=== PATIENT | male | born 1940 | race Caucasian/White ===

== ENCOUNTER 2018-08-15 06:29 | Day surgery (SDC) | payer MEDICARE, BC ==
[~2018-08-15] VITALS: Ht 175.3 cm; Wt 75.2 kg
[~2018-08-15 06:29] MED LIST: AMLO10TA8 PO; ASPI-496 PO; CHOL100015 PO; CHOL500050 PO; CIPR500T87 PO; CYAN100072 PO; CYAN1TAB29 PO; DAPA10TA PO; ENAL10TA PO; ENAL20TA PO; FENO160T PO; FLUC200T PO; FURO20TA3 PO; GLIM4TAB PO; GLIM4TAB2 PO; HYDR-3237 PO; HYDR-3240 PO; HYDR-3342 PO; INSU100V13 SQ; INSULIN GLARGINE SQ; LEVO150T5 PO; LEVO175T5 PO; LIPA1CAP PO; METO50TA82 PO; NIAC500C3 PO; OMEG1CAP2 PO; ONDA4TAB7 PO; POTA20TA14 PO; PREG50CA PO; PT TO BRING LIST; SERT50TA28 PO; SITA1TAB5 PO
[2018-08-15] MEDS ORDERED: LACTATED RINGERS 1,000 ML IV SCH (07:09)
[2018-08-15 07:13] VITALS: BP 149/69
[2018-08-15] MEDS ORDERED: VITAMIN D PO (07:42)
[2018-08-15] MEDS ORDERED: PIOG15TA22 PO (07:42)
[2018-08-15] MEDS ORDERED: DAPA1TAB3 PO (07:42)
[2018-08-15 07:54] LABS: ALANINE AMINOTRANSFERASE 21 U/L (12-78); ALBUMIN 3.5 g/dL (3.4-5.0); ANION GAP 10 mmol/L (5-15); CALCIUM 9.3 mg/dL (8.5-10.1); CHLORIDE 107 mmol/L (98-107)
[2018-08-15 07:56] LABS: ALKALINE PHOSPHATASE 121 U/L (45-117); BILIRUBIN,TOTAL 0.4 mg/dL (0.2-1.0); TOTAL PROTEIN 7.5 g/dL (6.4-8.2)
[2018-08-15] MEDS ORDERED: ALBUTEROL/IPRATROPIUM 2.5MG/0.5MG, 3 ML NPPB PRN (08:30)
[2018-08-15] MEDS ORDERED: KETOROLAC 30 MG/1 ML IV PRN (08:30)
[2018-08-15] MEDS ORDERED: METOPROLOL 1 MG/ML, 5ML IV PRN (08:30)
[2018-08-15] MEDS ORDERED: FENTANYL PF 100 MCG/2ML IV PRN (08:30)
[2018-08-15] MEDS ORDERED: ONDANSETRON 2MG/ML, 2ML IV PRN (08:30)
[2018-08-15] MEDS ORDERED: ACETAMINOPHEN 325 MG TABLET PO PRN (08:30)
[2018-08-15] MEDS ORDERED: MIDAZOLAM 1 MG/ML, 2ML IV PRN (08:30)
[2018-08-15] MEDS ORDERED: PROPOFOL 10 MG/ML, 20ML ONE (08:34)
== END 2018-08-15 11:05 | disposition home or self-care (01) ==
LOC: OUT 06:29
PROVIDERS: ATTEND Internal Medicine Geriatric Medicine
DX: Z09 Encounter for follow-up examination after completed treatment for conditions other than malignant neoplasm (principal); K63.5 Polyp of colon; I10 Essential (primary) hypertension; E11.9 Type 2 diabetes mellitus without complications; G47.33 Obstructive sleep apnea (adult) (pediatric); E03.9 Hypothyroidism, unspecified; I25.10 Atherosclerotic heart disease of native coronary artery without angina pectoris; Z86.010 Personal history of colon polyps; Z79.84 Long term (current) use of oral hypoglycemic drugs; Z98.890 Other specified postprocedural states
CPT/HCPCS: 36415; 45380; 45381; 45385; 80053; 82962; 88305; 93005; A4648; J2704; J7120